=== PATIENT | male | born 1950 | race Caucasian/White ===

== ENCOUNTER 2018-03-03 12:14 | Emergency (ER) | payer OTHER ==
[~2018-03-03] VITALS: Ht 162.6 cm; Wt 67.1 kg
[~2018-03-03 12:14] MED LIST: CELEBREX200 MG PO; FERROUS SULFAT325 MG PO; OMEGA-3 FISH O1 EAC3 PO; ROXICODONE5 MG PO; XARELTO10 MG PO
[2018-03-03] MEDS ORDERED: AUGMENTIN875 MG PO (14:20)
[2018-03-03 14:23] LABS: HEMOGLOBIN 15.6 G/DL (12.5-16.6); MCH 33.1 PG (29.0-34.0); MCHC 35.5 G/DL (30.0-36.0); MCV 93.2 FL (86-99); PLATELET COUNT 174 K/uL (156-360); RBC DIS.WIDTH-CV 12.4 % (11.8-14.6); RBC DIS.WIDTH-SD 42.3 % (39-53); RED BLOOD COUNT 4.72 M/uL (4.00-5.50); WHITE BLOOD COUNT 11.6 K/uL (4.1-10.2)
[2018-03-03 15:19] LABS: CHLORIDE 101 MEQ/L (99-109); GFR ESTIMATE (CALCULATED) > 59 mL/min/ (58.99-99999); GLUCOSE 101 mg/dL (70-99); POTASSIUM 4.2 MEQ/L (3.7-5.4); SODIUM 137 MEQ/L (136-147); UREA NITROGEN (BUN) 11 mg/dL (9-23)
[2018-03-03 15:59] VITALS: BP 151/96
== END 2018-03-03 16:01 | disposition home or self-care (01) ==
LOC: EME 12:14
PROVIDERS: Physician Assistant
PROC: 3E0234Z Introduction of Serum, Toxoid and Vaccine into Muscle, Percutaneous Approach (ICD-10-PCS; principal; 2018-03-03)
DX: S61.230A Puncture wound without foreign body of right index finger without damage to nail, initial encounter (principal); L03.011 Cellulitis of right finger; W55.51XA Bitten by raccoon, initial encounter; Y92.89 Other specified places as the place of occurrence of the external cause; Z20.3 Contact with and (suspected) exposure to rabies; Z23 Encounter for immunization; Z29.14 Encounter for prophylactic rabies immune globulin; J45.909 Unspecified asthma, uncomplicated; K21.9 Gastro-esophageal reflux disease without esophagitis; Z87.442 Personal history of urinary calculi; Z96.642 Presence of left artificial hip joint
CPT/HCPCS: 73140; 80048; 83605; 85027; 87040; 87070; 87075; 87205; 99281; 99285; J0696